=== PATIENT | female | born 1980 | race Caucasian/White ===

== ENCOUNTER 2021-05-07 20:54 | Emergency (ER) | payer OTHER ==
[2021-05-07 21:27] LABS: HEMOGLOBIN 14.2 gm/dl (12.3-15.3); RED BLOOD COUNT 5.33 M/UL (4.00-5.10); WHITE BLOOD COUNT 9.6 K/UL (4.5-11.0)
[2021-05-07 21:59] LABS: BUN/CREATININE RATIO 14 (0-10)
[2021-05-07] MEDS ORDERED: IBUPROFEN600 MG PO (22:20)
[2021-05-07] MEDS ORDERED: BENZONATATE100 MG PO (22:20)
[2021-05-07] MEDS ORDERED: MACROBID 100 M100 M1 PO (22:44)
== END 2021-05-07 22:10 | disposition home or self-care (01) ==
LOC: ER1 20:54
PROVIDERS: Emergency Medicine
DX: U07.1 COVID-19 (principal); N39.0 Urinary tract infection, site not specified
CPT/HCPCS: 0240U; 71045; 80053; 81001; 82550; 82553; 83605; 83874; 84439; 84443; 84484; 85025; 85379; 87040; 87081; 87880; 93005; 96374; 99284; J0696; J7030